=== PATIENT | female | born 1985 | race Caucasian/White ===

== ENCOUNTER 2022-06-08 10:04 | Inpatient (IN) | payer BC ==
[2022-06-07 11:48] LABS: #Monocytes 0.9 10x3/uL (0.0-1.1); #Neutrophils 7.2 10x3/uL (1.5-8.4); %Basophils 0.4 % (0.0-2.0); %Eosinophils 0.4 % (0.0-6.0); %Lymphocytes 12.8 % (18.0-47.0); %Monocytes 9.4 % (0.0-10.0); %Neutrophils 76.4 % (40.0-75.0); Hemoglobin 10.1 g/dL (12.0-15.5); Mean Corpuscular HGB CONC 32.6 g/dL (32.0-36.0); Mean Corpuscular Hemoglobin 25.9 pg (27.0-33.0); Mean Corpuscular Volume 79.5 fl (81.6-98.3); Mean Platelet Volume 10.8 fl (7.4-10.4); Platelet Count 224 10x3/uL (150-450); RBC Distribution Width 18.7 % (11.5-14.5); White Blood Cell (WBC) Count 9.4 10x3/uL (3.5-10.5)
[2022-06-07 12:18] LABS: HBSAg Index 0.19 S/CO (0-0.99); Hep B Surf Ag Non-Reactive S/CO (NonReactive); Syphilis Antibody Nonreactive (Nonreactive)
[~2022-06-08 10:04] MED LIST: Bicitra 30 ML UDCUP PO PRN; CEFAZOLIN 2 GM in Sodium Chloride 0.9% 100 ML IVPB SCH; Famotidine/PF 20 mg/2ml Vial SLOW IVP PRN; Lactated Ringer's 1,000 ML IV SCH; Ondansetron PF 4 MG/2 ML Vial IVP PRN; Promethazine HCl 25 MG/ML VIAL IM PRN; hydrALAZINE 20 MG/ML VIAL SLOW IVP PRN
[2022-06-08] MEDS ORDERED: Naloxone HCl 0.4 mg/ml Vial IVP PRN ×2 (11:48)
[2022-06-08] MEDS ORDERED: Ondansetron PF 4 MG/2 ML Vial IVP PRN ×2 (11:48→16:21)
[2022-06-08] MEDS ORDERED: Ondansetron HCl/PF 4 MG/2 ML Vial IVP PRN (11:48)
[2022-06-08] MEDS ORDERED: Naloxone HCl 0.4 mg/ml Vial IV PRN (11:48)
[2022-06-08] MEDS ORDERED: diphenhydrAMINE 50 MG/ML VIAL IVP PRN (11:48)
[2022-06-08] MEDS ORDERED: Promethazine HCl 25 MG/ML VIAL IM PRN (11:48)
[2022-06-08] MEDS ORDERED: Moisturizing Cream (Eucerin) 113 GM JAR TOP PRN (11:48)
[2022-06-08] MEDS ORDERED: Meperidine HCl/PF 25 MG/ML VIAL SLOW IVP PRN (11:48)
[2022-06-08] MEDS ORDERED: Promethazine HCl 25 MG SUPP PR PRN (11:48)
[2022-06-08] MEDS ORDERED: Fentanyl 100 MCG/2 ML VIAL SLOW IVP PRN (11:48)
[2022-06-08] MEDS ORDERED: Communication Order-Pharmacy FS SCH (12:00)
[2022-06-08 12:12] VITALS: BMI 29.8
[2022-06-08] MEDS ORDERED: Morphine PF 10 MG/10 ML VIAL ONE (12:15)
[2022-06-08] MEDS ORDERED: ePHEDrine Sulfate 50 MG/10 ML VIAL ONE (12:16)
[2022-06-08] MEDS ORDERED: Ondansetron PF 4 MG/2 ML Vial ONE (12:16)
[2022-06-08] MEDS ORDERED: Ketorolac Tromethamine 30 MG/ML VIAL ONE (12:16)
[2022-06-08] MEDS ORDERED: Phenylephrine 40 MG/NS 250 ML 250 ML ONE (12:16)
[2022-06-08] MEDS ORDERED: PHENYLEPHRINE-NS 100 MCG/ML 10 ML SYRINGE ONE (12:16)
[2022-06-08] MEDS ORDERED: Oxytocin 10 UNITS/ML VIAL ONE ×2 (12:19→13:29)
[2022-06-08] MEDS ORDERED: Methylergonovine 0.2 MG/ML VIAL ONE (13:28)
[2022-06-08] MEDS ORDERED: Lanolin Ointment 7 GM TUBE TOP PRN (16:21)
[2022-06-08] MEDS ORDERED: Bisacodyl 10 MG SUPP PR PRN (16:21)
[2022-06-08] MEDS ORDERED: Acetaminophen 325 MG TAB PO PRN (16:21)
[2022-06-08] MEDS ORDERED: diphenhydrAMINE 25 MG CAP PO PRN (16:21)
[2022-06-08] MEDS ORDERED: Simethicone Chewable 80 MG TAB PO PRN (16:21)
[2022-06-08] MEDS ORDERED: hydrALAZINE 20 MG/ML VIAL SLOW IVP PRN (16:21)
[2022-06-08] MEDS ORDERED: Boostrix 0.5 ML (Tdap) VIAL (>/=7 yrs of age) IM ONE (16:21)
[2022-06-08] MEDS ORDERED: Ketorolac Tromethamine 30 MG/ML VIAL IVP PRN (18:35)
[2022-06-08] MEDS ORDERED: Ketorolac Tromethamine 30 MG/ML VIAL IVP SCH (19:35)
[2022-06-08] MEDS: Docusate 100 MG CAP PO SCH (21:29)
[2022-06-09] MEDS ORDERED: HYDROcodone/Acetaminophen 5/325 mg Tablet PO PRN (00:01)
[2022-06-09] MEDS: Ferrous Sulfate 325 MG TAB PO SCH ×3 (01:38→21:29)
[2022-06-09 05:02] LABS: Hemoglobin 7.6 g/dL (12.0-15.5); Mean Corpuscular HGB CONC 33.2 g/dL (32.0-36.0); Mean Corpuscular Hemoglobin 26.3 pg (27.0-33.0); Mean Corpuscular Volume 79.2 fl (81.6-98.3); Mean Platelet Volume 10.5 fl (7.4-10.4); Platelet Count 181 10x3/uL (150-450); RBC Distribution Width 18.3 % (11.5-14.5); Red Blood Cell (RBC) Count 2.89 10x6/uL (3.90-5.03)
[2022-06-09] MEDS: Docusate 100 MG CAP PO SCH ×2 (07:57→21:29)
[2022-06-09] MEDS: Prenatal Vitamin 1 TAB PO SCH (07:58)
[2022-06-09] MEDS: Ibuprofen 800 MG TAB PO SCH ×2 (14:50→21:29)
[2022-06-09] MEDS: HYDROcodone/Acetaminophen 5/325 mg Tablet PO PRN (16:46)
[2022-06-10] MEDS: HYDROcodone/Acetaminophen 5/325 mg Tablet PO PRN (00:14)
[2022-06-10] MEDS: Ibuprofen 800 MG TAB PO SCH (06:31)
[2022-06-10] MEDS: Prenatal Vitamin 1 TAB PO SCH (08:59)
[2022-06-10] MEDS: Docusate 100 MG CAP PO SCH (08:59)
[2022-06-10] MEDS: Ferrous Sulfate 325 MG TAB PO SCH (08:59)
[2022-06-10 13:10] VITALS: BP 140/74; TEMP 98
[2022-06-14] MEDS ORDERED: Ibuprofen 800 MG TAB PO SCH (06:00)
== END 2022-06-10 14:00 | disposition home or self-care (01) | DRG 787 ==
LOC: CSHLD 10:04 → CSHPED 16:19
PROVIDERS: ADMIT Student in an Organized Health Care Education/Training Program; ATTEND Student in an Organized Health Care Education/Training Program
PROC: 10D00Z1 Extraction of Products of Conception, Low, Open Approach (ICD-10-PCS; principal; 2022-06-08)
DX: O34.211 Maternal care for low transverse scar from previous cesarean delivery (principal); D62 Acute posthemorrhagic anemia; Z20.822 Contact with and (suspected) exposure to COVID-19; Z3A.39 39 weeks gestation of pregnancy; Z37.0 Single live birth; O69.81X0 Labor and delivery complicated by cord around neck, without compression, not applicable or unspecified; O77.0 Labor and delivery complicated by meconium in amniotic fluid; O90.81 Anemia of the puerperium
CPT/HCPCS: 36415; 51702; 85027; 86780; 86850; 86900; 86901; 87340; J1885; J2210; J2274; J2405; J2590; U0003; U0005